=== PATIENT | female | born 1960 | race Hispanic/Latino ===

== ENCOUNTER 2016-07-17 02:02 | Emergency (ER) | payer OTHER ==
[2016-07-17 02:03] VITALS: BMI 32.2
[2016-07-17 02:14] VITALS: TEMP 98.1
[2016-07-17] MEDS ORDERED: Pantoprazole 40 MG in Sodium Chloride 0.9% 100 ML IV STA (02:29)
--- NOTE | 2016-07-17 02:35 | ED PDOC ---
Arrival/HPI - General Chief Complaint: Chest Pain Time Seen by Provider: 07/17/16 02:07 Historian: Patient - History of Present Illness Narrative History of Present Illness (Text): 07/17/16 02:31 Milvia Milan is a 56 year old female, with a history of ileostomy and GERD , presents to the emergency department complaining of chest pain and mild shortness of breath for past few hours. Describes quality as a pressure to the chest. Also notes of back pain radiating to shoulder and neck. Denies any fever , chills, headache, dizziness, nausea, vomiting, diarrhea, urinary symptoms, or any other complaints at this time. PMD: Dr. Corona Time/Duration: 1-3 hours Symptom Onset: Gradual Severity Level: Mild Activities at Onset: Light Past Medical History - Provider Review Nursing Documentation Reviewed: Yes - Infectious Disease Hx of Infectious Diseases: None - Cardiac Hx Cardiac Disorders: No - Pulmonary Hx Respiratory Disorders: No - Neurological Hx Neurological Disorder: No - HEENT Hx HEENT Disorder: No - Renal Hx Renal Disorder: No - Endocrine/Metabolic Hx Endocrine Disorders: No - Hematological/Oncological Hx Blood Disorders: Yes Hx Cancer: Yes (colon) Other/Comment: ostomy 1995 - Integumentary Hx Dermatological Disorder: No - Musculoskeletal/Rheumatological Hx Musculoskeletal Disorders: No - Gastrointestinal Hx Gastrointestinal Disorders: Yes Hx Bowel Surgery: Yes Hx Colostomy: Yes Hx Gastroesophageal Reflux: Yes Other/Comment: ostomy 1995 - Genitourinary/Gynecological Hx Genitourinary Disorders: No - Psychiatric Hx Psychophysiologic Disorder: Yes Hx Anxiety: Yes Hx Substance Use: No - Surgical History Hx Hysterectomy: Yes Other/Comment: ileostomy, foot surgery - Anesthesia Hx Anesthesia: Yes Hx Anesthesia Reactions: No - Suicidal Assessment Feels Threatened In Home Enviroment: No Family/Social History - Physician Review Nursing Documentation Reviewed: Yes Family/Social History: No Known Family HX Smoking Status: Never Smoked Hx Alcohol Use: No Hx Substance Use: No Hx Substance Use Treatment: No Allergies/Home Meds Allergies/Adverse Reactions: Allergies No Known Allergies Allergy (Verified 03/24/16 09:48) Home Medications: Home Meds Medication Instructions Recorded Confirmed Esomeprazole Magnesium [Nexium] 40 mg PO DAILY 01/23/15 07/17/16 Alprazolam [Xanax] 1 tab PO PRN PRN 03/24/16 07/17/16 oxyCODONE/Acetaminophen [Percocet 1 tab PO PRN PRN 03/24/16 07/17/16 5/325 mg Tab] Review of Systems - Physician Review All systems were reviewed & negative as marked: Yes - Review of Systems Constitutional: Normal. absent: Fatigue, Fevers Respiratory: SOB. absent: Cough, Sputum Cardiovascular: Chest Pain. absent: Palpitations Gastrointestinal: Normal. absent: Abdominal Pain, Diarrhea, Nausea, Vomiting Genitourinary Female: Normal. absent: Dysuria, Frequency Musculoskeletal: Back Pain (radiating to shoulder and neck ) Neurological: Normal Psychiatric: Normal Physical Exam Vital Signs Reviewed: Yes Vital Signs Temp Pulse Pulse Resp BP Pulse Ox 07/17/16 05:52 60 17 148/63 96 07/17/16 04:03 65 18 159/96 H 95 07/17/16 02:24 60 07/17/16 02:06 98.1 F 67 18 148/74 100 Temperature: Afebrile Blood Pressure: Normal Pulse: Regular Respiratory Rate: Normal Appearance: Positive for: Well-Appearing, Non-Toxic, Comfortable Pain Distress: None Mental Status: Positive for: Alert and Oriented X 3 - Systems Exam Head: Present: Atraumatic, Normocephalic Pupils: Present: PERRL Conjunctiva: Present: Normal Mouth: Present: Moist Mucous Membranes. No: Dry Neck: Present: Normal Range of Motion. No: MIDLINE TENDERNESS, Paraspinal Tenderness Respiratory/Chest: Present: Clear to Auscultation, Good Air Exchange. No: Respiratory Distress, Accessory Muscle Use Cardiovascular: Present: Regular Rate and Rhythm, Normal S1, S2. No: Murmurs Abdomen: Present: Normal Bowel Sounds. No: Tenderness, Distention, Peritoneal Signs Back: Present: Normal Inspection Upper Extremity: Present: Normal Inspection. No: Cyanosis, Edema Lower Extremity: Present: Normal Inspection. No: Edema Neurological: Present: GCS=15, CN II-XII Intact, Speech Normal, Motor Func Grossly Intact, Normal Sensory Function Skin: Present: Warm, Dry, Normal Color. No: Rashes Psychiatric: Present: Alert, Oriented x 3, Normal Insight, Normal Concentration Medical Decision Making ED Course and Treatment: 07/17/16 02:37 Impression: A 56 year old female who presents to the emergency department complaining of chest pain and shortness of breath for past few hours. Plan: -- CT chest -- EKG -- Labs, cardiac enzymes -- Chest X-ray -- Pepecid -- Protonix -- IV fluids -- Urinalysis -- Reassess and disposition Progress Notes: 07/17/16 05:09 CT Chest reviewed: No PE or pneumonia. Patient was offered admission to the hospital for chest pain, but patient wants to sign out against medical advice. I strongly advised to patient to stay in the hospital for further evaluation, but patient states she understands the risks of leaving and is adamant in her decision. Leaving Against Medical Advice (AMA): The patient is choosing to leave against medical advice. I have personally explained to the patient that choosing to do so may result in permanent bodily harm or . I have discussed at great length that without further evaluation and monitoring there may be unforeseen circumstances and/or deterioration causing permanent bodily harm or as a result of their choice. The patient is alert, oriented, and shows the mental capacity to make clear decisions regarding the patients health care at this time. The patient continues to wish to leave against medical advice. The patient has been advised that they should return to the emergency room immediately if they change their mind at any time, or if their condition begins to change or worsen in any way.. - Lab Interpretations Lab Results: 07/17/16 02:45 07/17/16 02:45 Lab Results 07/17/16 02:45: Sodium 137, Potassium 3.6, Chloride 104, Carbon Dioxide 25, Anion Gap 12, BUN 10, Creatinine 0.7, Est GFR ( Amer) > 60, Est GFR (Non- Af Amer) > 60, Random Glucose 113 H, Calcium 9.2, Total Bilirubin 0.6, AST 68 H , ALT 79 H, Alkaline Phosphatase 86, Lactate Dehydrogenase 449, Total Creatine Kinase 195, Troponin I < 0.01, Total Protein 7.1, Albumin 4.2, Globulin 2.8, Albumin/Globulin Ratio 1.5, Amylase 100, Lipase 220 07/17/16 02:45: PT 11.0, INR 1.02, APTT 24.7, D-Dimer, Quantitative 1.37 H 07/17/16 02:45: WBC 6.1 D, RBC 4.79, Hgb 13.1, Hct 38.7, MCV 80.8, MCH 27.3, MCHC 33.9, RDW 13.5, Plt Count 187, MPV 9.3, Gran % 45.2 L, Lymph % (Auto) 45.2 H, [place] % (Auto) 7.8 H, Eos % (Auto) 1.5, Baso % (Auto) 0.3, Gran # 2.77, Lymph # 2.8, [place] # 0.5, Eos # 0.1, Baso # 0.02 I have reviewed the lab results: Yes - RAD Interpretation Narrative RAD Interpretations (Text): EXAM: CT Angiography Chest With Intravenous Contrast FINDINGS: Pulmonary arteries: No acute findings. No pulmonary embolism. Aorta: No acute findings. No thoracic aortic aneurysm. Lungs: No acute findings. No mass. No consolidation. Pleural space: No acute findings. No significant effusion. No pneumothorax. Heart: No acute findings. No cardiomegaly. No significant pericardial effusion. No evidence of RV dysfunction. Bones/joints: No acute fracture. No dislocation. Soft tissues: No acute findings. Lymph nodes: No acute findings. No enlarged lymph nodes. Spleen: There is splenomegaly. IMPRESSION: 1. No pulmonary embolism. No pneumonia. 2. There is splenomegaly. Radiology Orders: 07/17/16 02:30 CHEST PORTABLE [RAD] Stat 07/17/16 03:46 ANGIO CHEST PE PROTOCOL [CT] Stat Guest Associate: Radiologist - Medication Orders Current Medication Orders: Discontinued Medications Famotidine (Pepcid) 20 mg IVP STAT STA Stop: 07/17/16 02:30 Last Admin: 07/17/16 02:53 Dose: 20 mg Pantoprazole Sodium 40 mg/ (Sodium Chloride) 100 mls @ 400 mls/hr IV STAT STA Stop: 07/17/16 02:43 Last Admin: 07/17/16 03:01 Dose: 400 mls/hr Sodium Chloride (Sodium Chloride 0.9%) 1,000 mls @ 80 mls/hr IV .[id number] Last Admin: 07/17/16 02:53 Dose: 80 mls/hr Iodixanol (Visipaque 320 Mg/Ml 100 Ml) Confirm Administered Dose 100 ml IV .STK- MED ONE Stop: 07/17/16 03:54 - Scribe Statement The provider has reviewed the documentation as recorded by the Scribe Jeb Muthuraman Provider Attestation: All medical record entries made by the Keishaibscott were at my direction and personally dictated by me. I have reviewed the chart and agree that the record accurately reflects my personal performance of the history, physical exam, medical decision making, and the department course for this patient. I have also personally directed, reviewed, and agree with the discharge instructions and disposition. Disposition/Present on Arrival - Present on Arrival Any Indicators Present on Arrival: No History of DVT/PE: No History of Uncontrolled Diabetes: No Urinary Catheter: No History of Decub. Ulcer: No History Surgical Site Infection Following: None - Disposition Have Diagnosis and Disposition been Completed?: Yes Diagnosis: Chest pain Disposition: AGAINST MEDICAL ADVICE Disposition Time: 05:45 Condition: FAIR Discharge Instructions (ExitCare): Chest Pain (ED)
[2016-07-17] MEDS ORDERED: Sodium Chloride 0.9% 1,000 ML IV SCH (02:45)
[2016-07-17 02:58] LABS: ADD MANUAL DIFF? NO
[2016-07-17 03:06] LABS: BASO # 0.02 K/mm3 (0.0-2.0); BASO % 0.3 % (0.0-3.0); EOS # 0.1 (0.0-0.7); EOS % 1.5 % (1.5-5.0); GRAN # 2.77 (1.4-6.5); GRAN % 45.2 % (50.0-68.0); HEMATOCRIT 38.7 % (36.0-48.0); LYMPH # 2.8 (1.2-3.4); LYMPH % 45.2 % (22.0-35.0); MEAN CELL VOLUME 80.8 fL (80.0-105.0); MEAN CORPUSCULAR HEMOGLOBIN 27.3 pg (25.0-35.0); MEAN CORPUSCULAR HGB CONC 33.9 g/dl (31.0-37.0); MEAN PLATELET VOLUME 9.3 fl (7.0-11.0); MONO # 0.5 (0.1-0.6); MONO % 7.8 % (1.0-6.0); PLATELET COUNT 187 10^3/uL (120.0-450.0); RED CELL DISTRIBUTION WIDTH 13.5 % (11.5-14.5); WHITE BLOOD COUNT 6.1 10^3/ul (4.5-11.0)
[2016-07-17 03:18] LABS: ALB/GLOB RATIO 1.5 (1.1-1.8); ALKALINE PHOSPHATASE 86 U/L (38-133); ALT/SGPT 79 U/L (7-56); AMYLASE 100 U/L (35-125); AST/SGOT 68 U/L (15-39); BILIRUBIN,TOTAL 0.6 mg/dL (0.2-1.3); BLOOD UREA NITROGEN 10 mg/dL (7-21); CALCIUM 9.2 mg/dL (8.4-10.5); CARBON DIOXIDE 25 mmol/L (21-33); CHLORIDE 104 mmol/L (98-107); GFR AFRICAN-AMERICAN > 60; GLUCOSE,RANDOM 113 mg/dL (70-110); LIPASE 220 U/L (23-300); POTASSIUM 3.6 mmol/L (3.6-5.0); SODIUM 137 mmol/L (132-148); TOTAL PROTEIN 7.1 g/dL (5.8-8.3)
[2016-07-17 03:26] LABS: INR 1.02 (0.93-1.08); PARTIAL THROMBOPLASTIN TIME 24.7 Seconds (23.7-30.8)
[2016-07-17 03:28] LABS: D DIMER 1.37 mg/L FEU (0-0.50)
[2016-07-17 03:39] LABS: TROPONIN I < 0.01 ng/mL
[2016-07-17] MEDS ORDERED: Iodixanol 320 MG/ML 100 ML BOTTLE IV ONE (03:53)
[2016-07-17 05:54] VITALS: BP 148/63; PULSE 60; RESP 17; O2SAT 96
--- NOTE | 2016-07-17 07:54 | RAD ---
HISTORY: cp COMPARISON: Chest x-ray performed 03/24/16 TECHNIQUE: Chest, one view. FINDINGS: Examination limited by habitus. LUNGS: No focal consolidation. Please note that chest x-ray has limited sensitivity for the detection of pulmonary masses. PLEURA: No significant pleural effusion identified. No definite pneumothorax . CARDIOVASCULAR: The cardiomediastinal silhouette appears within normal limits of size. OSSEOUS STRUCTURES: No acute osseous abnormality identified. VISUALIZED UPPER ABDOMEN: Unremarkable. OTHER FINDINGS: None. IMPRESSION: No focal consolidation, significant pleural effusion, or definite pneumothorax identified.
--- NOTE | 2016-07-17 09:22 | CT ---
CT chest with IV contrast Indication: Rule out PE, shortness of breath Technique: Contiguous axial images were obtained through the chest with intravenous contrast enhancement. Sagittal and coronal reconstructions were generated and reviewed. This CT exam was performed using 1 or more of the falling dose reduction techniques: Automated exposure control, adjustment of the MAA and/or kV according to patient size, and/or use of iterative reconstruction technique. IV Contrast: 100 mL Visipaque Radiation dose (DLP): 712.64 MGy-cm. Comparison: Chest CT performed 07/17/16 Findings: Visualized portions of the inferior thyroid gland appear unremarkable. The mediastinal and hilar vascular structures appear within normal limits. The heart appears within normal limits of size. No large central or segmental pulmonary embolus evident. Bibasilar atelectasis. No pleural effusion. No pneumothorax. 2 mm right upper lobe pulmonary nodule (series 4, image 59). Limited visualization of the upper abdomen appears grossly unremarkable. 7 mm probable splenule. Osseous demineralization. Degenerative changes. Impression: No large central or segmental pulmonary embolus evident. Bibasilar atelectasis. 2 mm right upper lobe pulmonary nodule. In the absence of risk factors for lung cancer, no specific imaging follow-up is required. If the patient is a smoker or has other risk factors, follow-up CT at 12 months is recommended to document stability. Preliminary impression was provided by virtual radiologic.
--- NOTE | 2016-07-17 10:00 | CARD ---
APPROVED REPORT EKG Measurement Heart [id number] <Conclusion> Sinus bradycardia Otherwise normal ECG
== END 2016-07-17 05:57 | disposition left against medical advice (07) ==
LOC: ED 02:02
DX: R07.9 Chest pain, unspecified (principal); K21.9 Gastro-esophageal reflux disease without esophagitis
CPT/HCPCS: 71010; 71275; 80053; 82150; 82550; 83615; 83690; 84484; 85025; 85378; 85610; 85730; 93005; 96374; 99283; C9113; J7040; Q9967

== ENCOUNTER 2016-08-01 11:44 | Emergency (ER) | payer OTHER ==
[2016-08-01 12:02] VITALS: TEMP 99.5
[2016-08-01 12:32] VITALS: BMI 37.4
--- NOTE | 2016-08-01 13:06 | ED PDOC ---
Arrival/HPI - General Time Seen by Provider: 08/01/16 11:59 Historian: Patient - History of Present Illness Narrative History of Present Illness (Text): 08/01/16 13:09 56 year old female whose past medical history includes colon CA, ileostomy, hysterectomy presents to the emergency department with abdominal discomfort, nausea, and vomiting for the past 3 days. She states she can't keep anything down because of her nausea. She is able to tolerate fluids. She denies lightheadedness of weakness. She dose feel general body aches. No fever or chills. No melena or hematachezia. No loss of appetite. Normal amount of stool coming from osteomy bag. PMD: Dr. Corona Time/Duration: < week Symptom Onset: Gradual Symptom Course: Unchanged Associated Symptoms (Text): None Past Medical History - Provider Review Nursing Documentation Reviewed: Yes - Infectious Disease Hx of Infectious Diseases: None - Cardiac Hx Cardiac Disorders: No - Pulmonary Hx Respiratory Disorders: No - Neurological Hx Neurological Disorder: No - HEENT Hx HEENT Disorder: No - Renal Hx Renal Disorder: No - Endocrine/Metabolic Hx Endocrine Disorders: No - Hematological/Oncological Hx Blood Disorders: Yes Hx Cancer: Yes (colon) Other/Comment: ostomy 1995 - Integumentary Hx Dermatological Disorder: No - Musculoskeletal/Rheumatological Hx Musculoskeletal Disorders: No - Gastrointestinal Hx Gastrointestinal Disorders: Yes Hx Bowel Surgery: Yes Hx Colostomy: Yes Hx Gastroesophageal Reflux: Yes Other/Comment: ostomy 1995 - Genitourinary/Gynecological Hx Genitourinary Disorders: No - Psychiatric Hx Psychophysiologic Disorder: Yes Hx Anxiety: Yes Hx Substance Use: No - Surgical History Hx Hysterectomy: Yes Other/Comment: ileostomy, foot surgery - Anesthesia Hx Anesthesia: Yes Hx Anesthesia Reactions: No - Suicidal Assessment Feels Threatened In Home Enviroment: No Family/Social History - Physician Review Nursing Documentation Reviewed: Yes Family/Social History: Unknown Family HX Smoking Status: Never Smoked Hx Alcohol Use: No Hx Substance Use: No Hx Substance Use Treatment: No Allergies/Home Meds Allergies/Adverse Reactions: Allergies No Known Allergies Allergy (Verified 03/24/16 09:48) Home Medications: Home Meds Medication Instructions Recorded Confirmed Esomeprazole Magnesium [Nexium] 40 mg PO DAILY 01/23/15 07/17/16 Alprazolam [Xanax] 1 tab PO PRN PRN 03/24/16 07/17/16 oxyCODONE/Acetaminophen [Percocet 1 tab PO PRN PRN 03/24/16 07/17/16 5/325 mg Tab] Review of Systems - Physician Review All systems were reviewed & negative as marked: Yes - Review of Systems Constitutional: absent: Fatigue, Fevers Respiratory: absent: SOB Gastrointestinal: Abdominal Pain, Nausea, Vomiting Musculoskeletal: absent: Back Pain, Neck Pain Skin: absent: Rash Neurological: absent: Dizziness Physical Exam Vital Signs Reviewed: Yes Vital Signs Temp Pulse Resp BP Pulse Ox 08/01/16 19:17 65 17 148/70 97 08/01/16 18:39 69 16 150/69 92 L 08/01/16 14:52 64 18 145/65 96 08/01/16 12:02 99.5 F 69 18 147/68 100 08/01/16 12:00 99.5 F 69 18 100 Temperature: Afebrile Blood Pressure: Normal Pulse: Regular Respiratory Rate: Normal Appearance: Positive for: Well-Appearing, Non-Toxic, Comfortable Pain Distress: None Mental Status: Positive for: Alert and Oriented X 3 - Systems Exam Head: Present: Atraumatic, Normocephalic Pupils: Present: PERRL Extroacular Muscles: Present: EOMI Conjunctiva: Present: Normal Mouth: Present: Moist Mucous Membranes Pharnyx: Present: Normal. No: ERYTHEMA, EXUDATE Neck: Present: Normal Range of Motion. No: Meningeal Signs Respiratory/Chest: Present: Clear to Auscultation, Good Air Exchange. No: Respiratory Distress, Accessory Muscle Use Cardiovascular: Present: Regular Rate and Rhythm, Normal S1, S2. No: Murmurs Abdomen: Present: Tenderness (epigatric tenderness), Normal Bowel Sounds, Other (Ileostomy). No: Distention, Peritoneal Signs, Rebound, Guarding Back: Present: Normal Inspection Upper Extremity: Present: Normal Inspection. No: Cyanosis, Edema Lower Extremity: Present: Normal Inspection. No: Edema Neurological: Present: GCS=15, CN II-XII Intact, Speech Normal Skin: Present: Warm, Dry, Normal Color. No: Rashes Psychiatric: Present: Alert, Oriented x 3, Normal Insight, Normal Concentration Medical Decision Making ED Course and Treatment: Impression: 56 year old female whose past medical history includes colon CA, ileostomy, hysterectomy presents to the emergency department with nausea and vomiting for the past 3 days. Differential Diagnosis included but are not limited to: Abdominal pain r/o obstruction Plan: -- CT Abdomen/Pelvis -- Pepcid, Toradol -- IV fluids -- Labs -- Reassess and disposition Prior Visits: Notes and results from previous visits were reviewed. Patient last seen in the ED on 07/17/16 for shortness of breath and signed out AMA. Progress Notes: CT Abdomen and Pelvis with contrast Creator : Tommie Luna MD Report Date : 08/01/2016 17:43 IMPRESSION: No acute findings related to/accounting for the clinical presentation. Expected postoperative changes following colonic resection. Unremarkable ileostomy and proximal small bowel. Patient received IV hydrated, antiemetic, and medications for pain control. She felt much better after treatment. Had a mild headache after treatment. Neuro exam normal. Vitals with normal range and stable. She's tolerating PO fluids in the ED without vomiting. Adequete fluid intact. She is no longer having symptoms. She has great follow up with Dr. Alvarez. She will call and make an appointment once she leaves here today. She was advised to return to the ED if symptoms worsen or any other concern. - Lab Interpretations Lab Results: 08/01/16 13:00 08/01/16 05:59 Lab Results 08/01/16 18:32: PT 12.0 H, INR 1.11 H, APTT 25.0 08/01/16 13:00: PT 37.4 H*, INR 3.46 H, APTT > 180.0 H* 08/01/16 13:00: WBC 6.3, RBC 4.91, Hgb 13.5, Hct 40.0, MCV 81.5, MCH 27.5, MCHC 33.8, RDW 13.6, Plt Count 176, MPV 9.7, Gran % 68.0, Lymph % (Auto) 26.5, [place] % (Auto) 4.9, Eos % (Auto) 0.3 L, Baso % (Auto) 0.3, Gran # 4.30, Lymph # 1.7, [place] # 0.3, Eos # 0.0, Baso # 0.02 08/01/16 05:59: Sodium 138, Potassium 3.5 L, Chloride 103, Carbon Dioxide 28, Anion Gap 11, BUN 9, Creatinine 0.6, Est GFR ( Amer) > 60, Est GFR (Non- Af Amer) > 60, Random Glucose 151 H, Calcium 9.2, Total Bilirubin 0.9, AST 53 H , ALT 60 H, Alkaline Phosphatase 87, Total Protein 7.8, Albumin 4.3, Globulin 3.4, Albumin/Globulin Ratio 1.3, Lipase 297 Potassium was replaced with PO potassium. INR/PTT was a lab error. Repeat improved. - RAD Interpretation Radiology Orders: 08/01/16 13:10 ABD PELVIS PO & IV CONTRAST [CT] Stat CT reviewed. - Medication Orders Current Medication Orders: Discontinued Medications Acetaminophen (Tylenol 325mg Tab) 650 mg PO STAT STA Stop: 08/01/16 18:03 Last Admin: 08/01/16 18:22 Dose: 650 mg Famotidine (Pepcid) 20 mg IVP STAT STA Stop: 08/01/16 13:11 Last Admin: 08/01/16 13:20 Dose: 20 mg Sodium Chloride (Sodium Chloride 0.9%) 1,000 mls @ 100 mls/hr IV .Q10H STA Stop: 08/01/16 23:09 Last Admin: 08/01/16 13:20 Dose: 100 mls/hr Iohexol (Omnipaque 240 (50 Ml)) Confirm Administered Dose 50 ml .ROUTE .STK-MED ONE Stop: 08/01/16 13:17 Iohexol (Omnipaque 350 100 Ml) Confirm Administered Dose 350 mg .ROUTE .STK-MED ONE Stop: 08/01/16 17:04 Ketorolac Tromethamine (Toradol) 30 mg IVP STAT STA Stop: 08/01/16 13:11 Last Admin: 08/01/16 13:20 Dose: 30 mg Ondansetron HCl (Zofran Inj) 4 mg IVP STAT STA Stop: 08/01/16 14:14 Last Admin: 08/01/16 14:33 Dose: 4 mg Potassium Chloride (K-Dur 20 Meq Er Tab) 40 meq PO STAT STA Stop: 08/01/16 14:14 Last Admin: 08/01/16 15:30 Dose: Potassium Chloride (Potassium Chloride Oral Soln) 40 meq PO STAT STA Stop: 08/01/16 15:35 Last Admin: 08/01/16 16:04 Dose: 40 meq - Scribe Statement The provider has reviewed the documentation as recorded by the Savana Sanders Provider Scribe Attestation: All medical record entries made by the Pje were at my direction and personally dictated by me. I have reviewed the chart and agree that the record accurately reflects my personal performance of the history, physical exam, medical decision making, and the department course for this patient. I have also personally directed, reviewed, and agree with the discharge instructions and disposition. Disposition/Present on Arrival - Present on Arrival Any Indicators Present on Arrival: No History of DVT/PE: No History of Uncontrolled Diabetes: No Urinary Catheter: No History Surgical Site Infection Following: None - Disposition Have Diagnosis and Disposition been Completed?: Yes Diagnosis: Abdominal pain, Vomiting Disposition: HOME/ ROUTINE Disposition Time: 19:20 Patient Plan: Discharge Condition: IMPROVED Discharge Instructions (ExitCare): Dehydration (ED), Acute Nausea and Vomiting (ED), Acute Abdominal Pain (ED) Additional Instructions: Ms Milan, thank you for letting us take care of you today. Your provider was Dr. Jim. You were treated for Abdominal Pain, Vomiting. The emergency medical care you received today was directed at your acute symptoms. If you were prescribed any medication, please fill it and take as directed. It may take several days for your symptoms to resolve. Return to the Emergency Department if your symptoms worsen, do not improve, or if you have any other problems. Please contact your doctor or call one of the physicians/clinics you have been referred to that are listed on the Patient Visit Information form that is included in your discharge packet. Bring any paperwork you were given at discharge with you along with any medications you are taking to your follow up visit. Our treatment cannot replace ongoing medical care by a primary care provider (PCP) outside of the emergency department. Thank you for allowing the [facility] team to be part of your care today. If you had an X-Ray or CT scan: A Radiologist will review the ED reading if any change in treatment is needed we will contact you. If you had a blood, urine, or wound culture: It will take several days for the results, if any change in treatment is needed we will contact you. If you had an STI test: It will take 48 hours for the results. Please call after 1 week if you have not heard back. Prescriptions: Ondansetron ODT [Zofran ODT] 4 mg PO Q6 #14 odt Ranitidine HCl [Zantac] 150 mg PO BID PRN #30 tablet PRN Reason: Pain, Mild (1-3) Referrals: Stanton Corona MD [Primary Care Provider] - Follow up with primary Forms: [employer] (Malagasy), WORK NOTE
[2016-08-01] MEDS ORDERED: Sodium Chloride 0.9% 1,000 ML IV STA (13:10)
[2016-08-01] MEDS ORDERED: Iohexol 240 (50 ml) ONE (13:16)
[2016-08-01 13:36] LABS: ADD MANUAL DIFF? NO
[2016-08-01 13:54] LABS: ALB/GLOB RATIO 1.3 (1.1-1.8); ALKALINE PHOSPHATASE 87 U/L (38-133); ALT/SGPT 60 U/L (7-56); AST/SGOT 53 U/L (15-39); BILIRUBIN,TOTAL 0.9 mg/dL (0.2-1.3); BLOOD UREA NITROGEN 9 mg/dL (7-21); CALCIUM 9.2 mg/dL (8.4-10.5); CARBON DIOXIDE 28 mmol/L (21-33); CHLORIDE 103 mmol/L (98-107); GFR AFRICAN-AMERICAN > 60; GLUCOSE,RANDOM 151 mg/dL (70-110); LIPASE 297 U/L (23-300); POTASSIUM 3.5 mmol/L (3.6-5.0); SODIUM 138 mmol/L (132-148); TOTAL PROTEIN 7.8 g/dL (5.8-8.3)
[2016-08-01 13:55] LABS: BASO # 0.02 K/mm3 (0.0-2.0); BASO % 0.3 % (0.0-3.0); EOS % 0.3 % (1.5-5.0); LYMPH # 1.7 (1.2-3.4); LYMPH % 26.5 % (22.0-35.0); MEAN CELL VOLUME 81.5 fL (80.0-105.0); MEAN CORPUSCULAR HEMOGLOBIN 27.5 pg (25.0-35.0); MEAN CORPUSCULAR HGB CONC 33.8 g/dl (31.0-37.0); MEAN PLATELET VOLUME 9.7 fl (7.0-11.0); MONO # 0.3 (0.1-0.6); MONO % 4.9 % (1.0-6.0); PLATELET COUNT 176 10^3/uL (120.0-450.0); RED CELL DISTRIBUTION WIDTH 13.6 % (11.5-14.5); WHITE BLOOD COUNT 6.3 10^3/ul (4.5-11.0)
[2016-08-01] MEDS ORDERED: Potassium Chloride 20 mEq ER Tab PO STA (14:13)
[2016-08-01 14:24] LABS: INR 3.46 (0.93-1.08)
[2016-08-01 14:26] LABS: PARTIAL THROMBOPLASTIN TIME > 180.0 Seconds (23.7-30.8)
[2016-08-01] MEDS ORDERED: Potassium Chloride 40 mEq/30 ml LIQ UD PO STA (15:34)
[2016-08-01] MEDS ORDERED: Iohexol 350 MG/100 ML VIAL ONE (17:03)
--- NOTE | 2016-08-01 17:41 | CT ---
PROCEDURE: CT Abdomen and Pelvis with contrast HISTORY: Abdominal pain, nausea and vomiting. COMPARISON: None. TECHNIQUE: Contrast dose: Radiation dose: Total exam DLP = mGy-cm. This CT exam was performed using one or more of the following dose reduction techniques: Automated exposure control, adjustment of the mA and/or kV according to patient size, and/or use of iterative reconstruction technique. FINDINGS: LOWER THORAX: Unremarkable. LIVER: Hepatic steatosis. No focal masses. No intrahepatic bile duct dilatation or perihepatic ascites. GALLBLADDER AND BILE DUCTS: Unremarkable. PANCREAS: Unremarkable. No gross lesion or ductal dilatation. SPLEEN: Unremarkable. ADRENALS: Unremarkable. No mass. KIDNEYS AND URETERS: Unremarkable. No hydronephrosis. No solid mass. VASCULATURE: Unremarkable. No aortic aneurysm. BOWEL: Postoperative findings related to colectomy and ileostomy. Unremarkable ostomy site, subcutaneous loop of small bowel without evidence of incarceration or obstruction. Remaining small bowel within normal limits without evidence of obstruction. Decompressed stomach. APPENDIX: Prior colonic resection, of the appendix is not identified presumably resected. PERITONEUM: Unremarkable. No free fluid. No free air. LYMPH NODES: Unremarkable. No enlarged lymph nodes. BLADDER: Unremarkable. REPRODUCTIVE: Unremarkable. BONES: No acute fracture. OTHER FINDINGS: None. IMPRESSION: No acute findings related to/accounting for the clinical presentation. Expected postoperative changes following colonic resection. Unremarkable ileostomy and proximal small bowel.
[2016-08-01 19:01] LABS: INR 1.11 (0.93-1.08)
[2016-08-01 19:19] VITALS: BP 148/70; PULSE 65; RESP 17; O2SAT 97
== END 2016-08-01 19:19 | disposition home or self-care (01) ==
LOC: ED 11:44
DX: R11.10 Vomiting, unspecified (principal); R10.9 Unspecified abdominal pain
CPT/HCPCS: 74177; 80053; 83690; 85025; 85610; 85730; 96374; 96375; 99285; J1885; J2405; J3480; J7040; Q9966; Q9967